=== PATIENT | male | born 1960 | race Caucasian/White ===

== ENCOUNTER 2021-04-09 12:46 | Emergency (ER) | payer OTHER, SELFPAY ==
[2021-04-09 12:46] VITALS: BP 154/102; PULSE 62; RESP 16; TEMP 36.4; O2SAT 97; BMI 32.5
[2021-04-09 13:46] LABS: Absolute Lymphocyte Count 1.61 X10^3/uL (0.83-4.51); Absolute Neutrophil Count 6.2 X10^3/uL (2.0-7.7); Basophil# 0.04 X10^3/uL; Basophil% 0.5 % (0-1); Eosinophil# 0.08 X10^3/uL; Eosinophils% 0.9 % (0-5); Hematocrit 43.6 % (40-54); Hemoglobin 15.4 g/dL (13.0-16.5); Lymphocyte # 1.61 X10^3/ul (0.83-4.51); Lymphocyte % 18.7 % (19-41); Mean Corp Hgb Conc 35.3 g/dL (32-36); Mean Corpuscular Hgb 31.1 pg (27.0-32.0); Mean Corpuscular Volume 88.1 fL (80-94); Mean Platelet Vol. 9.5 fl (6.2-12.0); Monocyte# 0.63 X10^3/uL; Monocyte% 7.3 % (0-10); NRBC Flagged by Analyzer 0 % (0-5); Neutrophil # 6.19 X10^3/uL (2.7-7.7); Neutrophil % 72.1 % (47-70); Platelet Count 144 K/mm3 (150-450); RBC Distribution Width CV 12.1 % (11.6-14.6); RBC Distribution Width SD 38.9 fl (35.1-43.9); Red Blood Count 4.95 M/mm3 (4.6-6.2); White Blood Count 8.6 K/mm3 (4.4-11.0)
[2021-04-09 13:57] LABS: ALB/GLOB Ratio 1.2 RATIO (0.9-2.4); AST(SGOT) 15 U/L (15-37); Alanine Aminotransfer ALT/SGPT 28 U/L (16-61); Albumin, Serum 3.7 g/dL (3.2-5.0); Alkaline Phosphatase 58 U/L (45-117); Anion Gap 6 (5-15); BUN 20 mg/dL (7-18); Calcium,Total 8.5 mg/dL (8.5-10.1); Chloride 108 mmol/L (98-107); Creatinine, Serum 1.05 mg/dL (0.70-1.30); EST Glomerular Filtration Rate 77 mL/min (>60); Est Glom Filt Rate - Afr Amer 93 mL/min (>60); Estimated Creatinine Clearance 76.69 ml/min; Globulin 3.1 g/dL (2.2-4.2); Glucose 93 mg/dL (74-106); Lipase 112 U/L (73-393); Potassium 3.7 mmol/L (3.5-5.1); Protein, Total 6.8 g/dL (6.4-8.2); Sodium Level 139 mmol/L (136-145)
--- NOTE | 2021-04-09 14:36 | US_ITS ---
STUDY: ABDOMINAL ULTRASOUND - RIGHT UPPER QUADRANT REASON FOR VISIT: Male, 60 years old . Right upper quadrant pain with nausea. TECHNIQUE: Ultrasound evaluation of the right upper quadrant was performed with real-time and static sauceda-scale imaging. TECHNICAL QUALITY: Adequate. COMPARISON: None. FINDINGS: Liver: The liver measures 17 cm. There is increased echogenicity consistent with fatty infiltration. The bile ducts are within normal limits. There is hepatic color flow. The direction of portal flow is hepatopetal. There is no demonstrated mass lesion. Gallbladder: Normal distended gallbladder. The gallbladder wall measures 2 mm. There is a negative sonographic Sales''s sign. There is no pericholecystic fluid. There are no gallstones. Mild degree of sludge is seen within the gallbladder lumen. Common Bile Duct (C.B.D.): The common bile duct measures 3 mm. Pancreas: There is nonvisualization of the pancreas due to overlying bowel gas. Right Kidney: Normal size of the right kidney. The right kidney measures 11.3 cm x 4.8 cm x 5.5 cm. Normal renal cortex. The right cortex measures 1.2 cm. There is no demonstrated renal mass or cyst. There is no right hydronephrosis. US/Gallbladder IMPRESSION: Fatty infiltration of the liver. Findings suggestive of a small amount of sludge in the gallbladder lumen. Electronically Signed: Solomon Salazar MD at 15:24 EST , Service support ,
--- NOTE | 2021-04-09 14:37 | EDS_ITS ---
HPI HPI - GI History of Present Illness Chief Complaint: Abd Pain Narrative Narrative: 60-year-old male presenting with right upper quadrant pain. Patient states that started last night about midnight. He states his last meal before. The pain started was about 5 PM when he ate meatloaf and mashed potatoes. He states he had a couple of drinks of alcohol and then went to bed. He had pain to the night and woke up this morning and had a hotdog before work which made his abdominal pain worse. He states he went to work and came home and then ate ham and eggs and his right upper quadrant again started hurting. Patient has nausea without vomiting. He denies diarrhea. Patient has not had fever or chills. [facility] Medical History HTN (hypertension) Home Medications atenolol 25 mg PO DAILY 04/09/21 [History Last Taken Unknown] hydrochlorothiazide 25 mg PO DAILY 04/09/21 [History Last Taken Unknown] lisinopril 10 mg PO DAILY 04/09/21 [History Last Taken Unknown] omeprazole 20 mg PO DAILY 04/09/21 [History Last Taken Unknown] Allergy/AdvReac Type Severity Reaction Status Date / Time No Known Allergies Allergy Verified 04/09/21 12:48 Social History Smoking Status: Never smoker ROS ROS ED Constitutional Constitutional ED: Denies chills or fever(s) ENT ENT ED: Denies rhinorrhea or sore throat Cardiovascular Cardiovascular: Denies chest pain or palpitations Respiratory/Chest Respiratory/Chest: Denies cough or dyspnea Gastrointestinal Gastrointestinal: Reports abdominal pain and nausea; Denies constipation, diarrhea or vomiting Genitourinary Genitourinary ED: Denies dysuria or hematuria Musculoskeletal Musculoskeletal: Denies arthralgias or myalgias Integumentary Denies Abrasions or rash Neurologic Neurologic: Denies headache(s) or paresthesias EXAM Physical Exam Const Vital Signs: 04/09/21 12:46 04/09/21 15:21 Temperature 97.6 F L Temperature Source Temporal Pulse Rate 62 72 Respiratory Rate 16 16 Blood Pressure 154/102 H 168/99 H Blood Pressure Mean 119 122 Pulse Ox 97 98 Oxygen Delivery Method Room Air Positive well nourished and obese General Appearance ED: NAD; Negative for pallor Nutritional Appearance: obese HEENT Reports moist mucous membranes normocephalic and atraumatic Eyes PERRL and EOMs intact bilaterally General Eye ED: Negative for pale conjunctiva or scleral icterus Resp normal respiratory effort and clear to auscultation bilaterally Cardio regular rate and regular rhythm Neuro CN's II-XII intact bilaterally Sensorium / Orientation: alert, oriented to person, oriented to place and oriented to time Psych mental status grossly normal and thought process normal Skin General Skin Exam: Negative for jaundice or pallor Rashes: no rashes MDM MDM MDM Narrative Medical decision making narrative: Patient presenting with right upper quadrant pain. Lab work is within normal limits. This includes LFTs and lipase. Urinalysis negative for infection and hematuria. Right upper quadrant ultrasound is ordered due to the location of his pain and this is negative for acute findings. After this a CT of the abdomen pelvis was performed and shows no acute intra-abdominal pathology. Patient feeling more comfortable after receiving morphine and Zofran. I recommend that he follow-up outpatient and I will give him referral for Dr. Resendez. Impression: 1. Abdominal pain Lab Data Labs: Laboratory Results - last 24 hr 04/09/21 04/09/21 04/09/21 13:30 13:30 15:15 WBC 8.6 RBC 4.95 Hgb 15.4 Hct 43.6 MCV 88.1 MCH 31.1 MCHC 35.3 RDW Std Deviation 38.9 RDW Coeff of Obdulio 12.1 Plt Count 144 L MPV 9.5 Immature Gran % (Auto) 0.500 Neut % (Auto) 72.1 H Lymph % (Auto) 18.7 L Colbert % (Auto) 7.3 Eos % (Auto) 0.9 Baso % (Auto) 0.5 Absolute Neuts (auto) 6.2 Absolute Lymphs (auto) 1.61 Nucleated RBC % 0 Sodium 139 Potassium 3.7 Chloride 108 H Carbon Dioxide 25.0 Anion Gap 6 BUN 20 H Creatinine 1.05 Estim Creat Clear Calc 76.69 Est GFR (MDRD) Af Amer 93 Est GFR (MDRD) Non-Af 77 BUN/Creatinine Ratio 19.0 Glucose 93 Calcium 8.5 Total Bilirubin 0.60 AST 15 ALT 28 Alkaline Phosphatase 58 Total Protein 6.8 Albumin 3.7 Globulin 3.1 Albumin/Globulin Ratio 1.2 Lipase 112 Urine Color Yellow Urine Clarity Clear Urine pH 6.5 Ur Specific [place] 1.015 Urine Protein Negative Urine Glucose (UA) Normal Urine Ketones 5 H Urine Occult Blood Negative Urine Nitrite Negative Urine Bilirubin Negative Urine Urobilinogen Normal Ur Leukocyte Esterase Negative Urine RBC 0 SEEN Urine WBC 0-5 SEEN Ur Squamous Epith Cells 0-5 SEEN Urine Bacteria 0 SEEN Urine Mucus 1+ Radiography Diagnostic Testing: Clinical Impression(s) from Imaging Studies Gallbladder Ultrasound 04/09/21 14:36 IMPRESSION: Fatty infiltration of the liver. Findings suggestive of a small amount of sludge in the gallbladder lumen. Electronically Signed: Solomon Salazar MD at 15:24 EST , Service support , Abdomen/Pelvis CT 04/09/21 15:32 IMPRESSION: No suspicious solid organ abnormality No free intraperitoneal fluid, air, or suspicious adenopathy Normal appendix visualized Electronically Signed: Hernán Mendez MD at 16:50 EST , Service support , Discharge Plan Triage Chief Complaint: Abd Pain ED Provider: Rashard Proctor Dx/Rx/DC Orders Instructions: ED Abdominal Pain Unkn Cause Male... Prescriptions: No Action atenolol 25 mg tablet 25 mg PO DAILY RF: 0 lisinopril 10 mg tablet 10 mg PO DAILY RF: 0 omeprazole 20 mg capsule,delayed release(DR/EC) 20 mg PO DAILY RF: 0 hydrochlorothiazide 25 mg tablet 25 mg PO DAILY RF: 0 Primary Care Provider: Barber Alvarenga Referrals: Jurgen Resendez DO [STAFF PHYSICIAN] - As soon as possible Barber Alvarenga MD [Primary Care Provider] - Disposition Disposition: Home, Self Care
[2021-04-09] MEDS: Ondansetron 4 MG/2 ML Vial IV (15:20)
[2021-04-09] MEDS: 0.9% Normal Saline 1,000 ML 999 ML IV (15:20)
[2021-04-09] MEDS: Morphine 4 MG/ML Syringe IV (15:20)
[2021-04-09 15:21] VITALS: BP 168/99; PULSE 72; RESP 16; O2SAT 98
[2021-04-09 15:29] LABS: Bacteria 0 SEEN /hpf (None Seen); Red Blood Cells-Urine 0 SEEN /hpf (0-5)
--- NOTE | 2021-04-09 15:32 | CT_ITS ---
STUDY: CT ABDOMEN AND PELVIS WITH CONTRAST REASON FOR EXAM: Male, 60 years old. Right upper quadrant pain RADIATION DOSAGE (If Supplied By Facility): CTDIvol = ( 17.07 ) mGy, DLP = ( 1096.87 ) mGycm TECHNIQUE: Transaxial images were obtained from the dome of the diaphragm to the symphysis pubis without oral contrast. IV 100mL [id number]-300 was administered. Sagittal and coronal images were reconstructed. Individualized dose optimization techniques were used for this CT. COMPARISON: None. FINDINGS: The visualized lung bases are unremarkable aside from atelectasis. The visualized portions of the heart are within normal limits. Normal liver. Normal gallbladder and extrahepatic biliary system. Normal spleen. Normal pancreas. Normal bilateral adrenal glands. Normal right kidney. Normal left kidney. Normal visualized stomach. Normal small intestine. Normal colon. The appendix is visualized and appears normal. Appendix seen on coronal recon images 57-67 Normal abdominal aorta. Normal inferior vena cava. Normal retroperitoneum. Normal urinary bladder. Normal abdominal wall. Normal osseous structures. CT/Abdomen/Pelvis W IV Cont ONLY IMPRESSION: No suspicious solid organ abnormality No free intraperitoneal fluid, air, or suspicious adenopathy Normal appendix visualized Electronically Signed: Hernán Mendez MD at 16:50 EST , Service support ,
[2021-04-09 15:36] LABS: Color, Urine Yellow (Yellow); Glucose, Dipstick Normal (Normal); Ketone-Dipstick 5 mg/dl (Negative); Leukocyte Esterase-Dipstick Negative /ul (Negative); Nitrite-Dipstick Negative (Negative); Occult Blood-Urine Negative /ul (Negative); Protein-Dipstick Negative (Negative); Specific Gravity, Urine 1.015 (1.002-1.030); Urine Bilirubin Dipstick Negative (Negative); Urine Clarity Clear (Clear); Urine Urobilinogen Normal (Normal); Urine pH 6.5 (5.0 - 8.0)
[2021-04-09 16:15] LABS: Squamous Epithelial Cells - UA 0-5 SEEN /hpf (0-5); White Blood Cells 0-5 SEEN /hpf (0-5)
[2021-04-09 16:16] LABS: Mucous, Urine 1+ /hpf (<or=2+)
== END 2021-04-09 17:34 | disposition home or self-care (01) ==
PROVIDERS: Emergency Provider Student in an Organized Health Care Education/Training Program; PCP Family Medicine; Visit Provider Student in an Organized Health Care Education/Training Program
DX: R10.11 Right upper quadrant pain (principal); I10 Essential (primary) hypertension; E66.9 Obesity, unspecified; Z79.899 Other long term (current) drug therapy
CPT/HCPCS: 74177; 76705; 80053; 81001; 83690; 85025; 96361; 96374; 96375; 99282; J7030; Q9967; A4216; J2405